=== PATIENT | female | born 1960 | race Two or more races ===

== ENCOUNTER 2018-01-25 13:48 | Emergency (ER) | payer OTHER ==
[2018-01-25] MEDS ORDERED: FAMOTIDINE 20 MG/50 ML IVPB 20 MG/50 ML MG IVPB ONE ×2 (14:13→14:21)
[2018-01-25] MEDS ORDERED: ONDANSETRON 4 MG/2 ML VIAL IVPUSH ONE (14:13)
[2018-01-25] MEDS ORDERED: MAG HYDROX/AL HYDROX/SIMETH 30 ML UNIT-DOSE CUP PO ONE (14:15)
[2018-01-25] MEDS ORDERED: SODIUM CHLORIDE 1,000 ML IV STA (14:20)
[2018-01-25] MEDS ORDERED: MAG HYDROX/AL HYDROX/SIMETH 30 ML UNIT-DOSE CUP ONE (14:21)
[2018-01-25] MEDS ORDERED: ONDANSETRON 4 MG/2 ML VIAL ONE (14:21)
--- NOTE | 2018-01-25 14:35 | PDOC ---
Attending Attestation - HPI HPI: 01/25/18 15:12 The patient is a 57 year old female with a significant PMH of tobacco use who presents to the emergency department with LUQ abdominal pain beginning approximately 3 days ago. She reports her LUQ pain is a stabbing sensation that radiates to her left flank with no aggravating or remitting factors. The patient was evaluated here yesterday for the same complaint and was discharged after normal labs, EKG, and CXR and improvement in pain with Pepcid and Maalox. Pt was prescribed Pepcid and Maalox, which she reports she did not take because she did not think it would help. Allergies: Sulfonamide antibiotics. - Physicial Exam PE: 01/25/18 15:12 GENERAL: Awake, alert, and fully oriented, in no acute distress HEAD: No signs of trauma EYES: PERRLA, EOMI, sclera anicteric, conjunctiva clear ENT: Auricles normal inspection, hearing grossly normal, nares patent, oropharynx clear without exudates. Moist mucosa NECK: Normal ROM, supple, no lymphadenopathy, JVD, or masses LUNGS: Breath sounds equal, clear to auscultation bilaterally. No wheezes, and no crackles HEART: Regular rate and rhythm, normal S1 and S2, no murmurs, rubs or gallops ABDOMEN: Soft, +LUQ ttp, normoactive bowel sounds. No guarding, no rebound. No masses. +L CVAT EXTREMITIES: Normal range of motion, no edema. No clubbing or cyanosis. No cords , erythema, or tenderness BACK: No midline spinal tenderness in cervical/thoracic/lumbar region NEUROLOGICAL: Normal speech, cranial nerves intact, negative pronator drift, 5/ 5 strength in all 4 extremities, normal sensation to light touch in all 4 extremities, normal cerebellar exam, normal gait, normal reflexes and tone SKIN: Warm, Dry, normal turgor, no rashes or lesions noted. <Bao Cid - Last Filed: 01/25/18 15:12> - Resident Resident Name: Ry Khan - ED Attending Attestation I have performed the following: I have examined & evaluated the patient, The case was reviewed & discussed with the resident, I agree w/resident's findings & plan, Exceptions are as noted - Medical Decision Making 01/25/18 14:34 57-year-old female presents emergency department for the second time in 2 days for left upper quadrant and left flank pain. Patient reported improvement with Pepcid yesterday however pain returned. Vitals unremarkable. Exam with left upper quadrant tenderness palpation and left CVA tenderness as well. Differential includes but is not limited to gastritis versus renal colic versus reflux versus musculoskeletal pain. We'll obtain lab work, urinalysis and CT scan, give pain control and reassess. 01/25/18 18:58 Labs, UA unremarkabe. Pain improved. CT done but pending read. 01/25/18 19:28 CT with no acute pathology. Patient reports significant improvement in pain. Repeat abd exam benign. Requests discharge home. Advised patient to follow up with her primary doctor and gastroenterology within one week. Pt agrees to plan. I discussed the physical exam findings, ancillary test results and final diagnoses with the patient. I answered all of the patient's questions. The patient was satisfied with the care received and felt comfortable with the discharge plan and treatment plan. The patient will call their primary care physician within 24 hours to arrange follow-up and will return to the Emergency Department with any new, persistent or worsening symptoms. <Amy Carrasco - Last Filed: 01/25/18 19:50> Discharge Disposition <Bao Cid - Last Filed: 01/25/18 15:12> - Discharge Dispostion Last Admission D/C Date: 02/05/02 Admit: No <Amy Carrasco - Last Filed: 01/25/18 19:50> - Diagnosis Abdominal pain - Discharge Dispostion Disposition: HOME Condition at time of disposition: Stable - Referrals Referrals: Eilceo Wiggins MD [Staff Physician] - - Patient Instructions Printed Discharge Instructions: DI for Abdominal Pain-Adult Additional Instructions: Call Dr. Wiggins's office for a follow-up appointment with her primary doctor within [address] Wiggins may refer you to a block hand for your abdominal pain. Return to the emergency department if you have any new, worsening or concerning symptoms.
--- NOTE | 2018-01-25 14:59 | PDOC ---
History of Present Illness - General Chief Complaint: Pain Stated Complaint: L SIDE STOMACH PAIN Time Seen by Provider: 01/25/18 14:04 History Source: Patient Exam Limitations: No Limitations - History of Present Illness Initial Comments: 01/25/18 14:48 Patient is a 57F with history of tobacco use here today complaining of LUQ abdominal and flank pain. Patient was seen in the ED by myself yesterday. Abdominal labs and UA were normal and patient's pain resolved with administration of pepcid, zofran and maalox. Patient was discharged with instructions to take maalox and pepcid for her pain. She reports that the pain came back this morning, but that she did not take any medications. She describes the pain as a stabbing pain that comes and goes in her left upper quadrant. Past History - Past Medical History Allergies/Adverse Reactions: Allergies Allergy/AdvReac Type Severity Reaction Status Date / Time Sulfa (Sulfonamide Allergy Verified 01/25/18 13:56 Antibiotics) Home Medications: Ambulatory Orders NK [No Known Home Medication] 01/24/18 COPD: No - Suicide/Smoking/Psychosocial Hx Smoking History: Never smoked Have you smoked in the past 12 months: No Information on smoking cessation initiated: No Hx Alcohol Use: No Drug/Substance Use Hx: No Substance Use Type: None Review of Systems - Review of Systems Comments:: 01/25/18 14:59 GENERAL/CONSTITUTIONAL: No fever or chills. HEAD, EYES, EARS, NOSE AND THROAT: No change in vision. No sore throat. CARDIOVASCULAR: No chest pain or shortness of breath RESPIRATORY: No cough, wheezing, or hemoptysis. GASTROINTESTINAL: Positive for nausea. Negative for vomiting, diarrhea or constipation. GENITOURINARY: No dysuria, frequency, or change in urination. MUSCULOSKELETAL: No joint or muscle swelling or pain. No neck or back pain. SKIN: No rash NEUROLOGIC: No headache, vertigo, loss of consciousness, or change in strength/ sensation. ENDOCRINE: No increased thirst. No abnormal weight change HEMATOLOGIC/LYMPHATIC: No anemia, easy bleeding, or history of blood clots. *Physical Exam - Vital Signs Last Vital Signs Temp Pulse Resp BP Pulse Ox 97.6 F 70 18 132/84 100 01/25/18 13:52 01/25/18 13:52 01/25/18 13:52 01/25/18 13:52 01/25/18 13:52 - Physical Exam Comments: 01/25/18 15:00 GENERAL: Awake, alert, and fully oriented, in no acute distress HEAD: No signs of trauma, normocephalic, atraumatic EYES: PERRLA, EOMI, sclera anicteric, conjunctiva clear ENT: Auricles normal inspection, hearing grossly normal, nares patent, oropharynx clear without exudates. Moist mucosa NECK: Normal ROM, supple, no lymphadenopathy, JVD, or masses LUNGS: No distress, speaks full sentences, clear to auscultation bilaterally HEART: Regular rate and rhythm, normal S1 and S2, no murmurs, rubs or gallops, peripheral pulses normal and equal bilaterally. ABDOMEN: Soft, minimally tender in LUQ, normoactive bowel sounds. No guarding, no rebound. No masses EXTREMITIES: Normal inspection, Normal range of motion, no edema. No clubbing or cyanosis. NEUROLOGICAL: Cranial nerves II through XII grossly intact. Normal speech, normal gait, no focal sensorimotor deficits SKIN: Warm, Dry, normal turgor, no rashes or lesions noted. ED Treatment Course - LABORATORY CBC & Chemistry Diagram: 01/25/18 13:30 01/25/18 13:30 - RADIOLOGY Radiology Studies Ordered: Category Date Time Status ABDOMEN & PELVIS CT WITH CONTR [CT] Stat CT Scan 01/25/18 14:16 Ordered - Medications Given in the ED: ED Medications Discontinued Medications Generic Name Dose Route Start Last Admin Trade Name Freq PRN Reason Stop Dose Admin Al Hydroxide/Mg Hydroxide 30 ml 01/25/18 14:15 01/25/18 14:40 Mylanta Oral Suspension - PO 01/25/18 14:16 30 ml ONCE ONE Administration Famotidine/Sodium Chloride 20 mg in 50 mls @ 100 mls/hr 01/25/18 14:13 14:41 Pepcid 20 Mg Premixed Ivpb - IVPB 01/25/18 14:42 100 mls/hr ONCE ONE Administration Ondansetron HCl 4 mg 01/25/18 14:13 01/25/18 14:41 Zofran Injection IVPUSH 01/25/18 14:14 Not Given ONCE ONE Medical Decision Making - Medical Decision Making 01/25/18 15:00 Patient is 57F with history of tobacco use here today complaining of LUQ/left flank pain. Vital signs stable and normal. Patient complaining of same pain as last night. Differential diagnosis includes, but is not limited to: gastritis, kidney stones, acs, pancreatitis. Do not believe patient has PE given lack of risk factors and what would be a very atypical presentation. EKG shows normal sinus rhythm with normal rate. Normal axis. T wave inversions in III and aVF, new compared to prior ekg from several months ago. III present in ekg done yesterday. aVF had poor baseline yesterday. No st elevations/ depressions. 01/25/18 16:46 Laboratory Tests 01/25/18 01/25/18 01/25/18 13:30 13:30 13:30 WBC 7.6 Hgb 12.6 Hct 37.3 Plt Count 239 Creat Clearance w eGFR > 60 Troponin I < 0.02 Urine Blood Urine Nitrite Ur Leukocyte Esterase 01/25/18 14:43 WBC Hgb Hct Plt Count Creat Clearance w eGFR Troponin I Urine Blood Negative Urine Nitrite Negative Ur Leukocyte Esterase Negative CBC normal. Lipase negative. Troponin undetectable. UA negative. Pending CT. *DC/Admit/Observation/Transfer Diagnosis at time of Disposition: Abdominal pain - Discharge Dispostion Disposition: HOME Condition at time of disposition: Stable - Referrals Referrals: Eliceo Wiggins MD [Staff Physician] - - Patient Instructions Printed Discharge Instructions: DI for Abdominal Pain-Adult Additional Instructions: Call Dr. Wiggins's office for a follow-up appointment with her primary doctor within [address] Wiggins may refer you to a deputy insurance commissioner for your abdominal pain. Return to the emergency department if you have any new, worsening or concerning symptoms. - Post Discharge Activity
[2018-01-25 15:09] LABS: URINE APPEARANCE CLEAR; URINE BILIRUBIN NEGATIVE (NEGATIVE); URINE BLOOD NEGATIVE (NEGATIVE); URINE COLOR LTYELLOW; URINE GLUCOSE (UA) NEGATIVE (NEGATIVE); URINE KETONE NEGATIVE (NEGATIVE); URINE LEUK ESTERASE NEGATIVE (NEGATIVE); URINE NITRITE NEGATIVE (NEGATIVE); URINE PROTEIN NEGATIVE (NEGATIVE)
[2018-01-25 15:32] LABS: ALBUMIN 3.5 g/dl (3.4-5.0); ANION GAP 6 (8-16); BILIRUBIN,TOTAL 0.4 mg/dL (0.2-1.0); BLOOD UREA NITROGEN 11 mg/dL (7-18); CALCIUM 8.5 mg/dL (8.5-10.1); CHLORIDE 108 mmol/L (98-107); CO2 27 mmol/L (21-32); CREATININE 0.7 mg/dL (0.55-1.02); GLUCOSE,RANDOM 83 mg/dL (74-106); LIPASE 171 U/L (73-393); POTASSIUM 4.4 mmol/L (3.5-5.1); SGOT/AST 18 U/L (15-37); SGPT/ALT 29 U/L (12-78); SODIUM 141 mmol/L (136-145); TOT PROT 6.5 g/dl (6.4-8.2)
[2018-01-25 15:33] LABS: ALK PHOS 83 U/L (45-117)
[2018-01-25 15:59] LABS: BASO % 0.6 % (0-2.0); EOS % 5.5 % (0-4.5); HEMATOCRIT 37.3 % (32.4-45.2); HEMOGLOBIN 12.6 GM/dL (10.7-15.3); LYMPH % 32.7 % (8-40); MCH 32.2 pg (25.7-33.7); MCHC 33.8 g/dl (32.0-36.0); MEAN CELL VOLUME 95.4 fl (80-96); MEAN PLT VOLUME 8.9 fl (7.5-11.1); MONO % 5.3 % (3.8-10.2); NEUT % 55.9 % (42.8-82.8); PLATELET COUNT 239 K/MM3 (134-434); RBC 3.91 M/mm3 (3.60-5.2); RDW 12.9 % (11.6-15.6); WHITE BLOOD COUNT 7.6 K/mm3 (4.0-10.0)
[2018-01-25 18:00] VITALS: BP 157/76; PULSE 69; TEMP 98.7
[2018-01-25 18:35] VITALS: BMI 25.2
--- NOTE | 2018-01-25 19:45 | EKG ---
Test Reason : Blood Pressure : / mmHG Vent. Rate : 061 BPM Atrial Rate : 061 BPM P-R Int : 138 ms QRS Dur : 074 ms QT Int : 414 ms P-R-T Axes : 003 -21 -28 degrees QTc Int : 416 ms NORMAL SINUS RHYTHM NONSPECIFIC T WAVE ABNORMALITY ABNORMAL ECG WHEN COMPARED WITH ECG OF 24-JAN-2018 16:25, T WAVE VARIATION Confirmed by KEEGAN FORD MD ([id number]) on 01/25/2018 7:45:45 PM Referred By: Confirmed By:KEEGAN FORD MD
== END 2018-01-25 17:30 | disposition home or self-care (01) ==
LOC: JER 13:48 → JERBED 17:16 → UNDOADMOB 17:16 → JER 17:30
PROC: 3E033GC Introduction of Other Therapeutic Substance into Peripheral Vein, Percutaneous Approach (ICD-10-PCS; principal; 2018-01-25)
DX: R10.84 Generalized abdominal pain (principal)
CPT/HCPCS: 36415; 74177-TC; 80053; 81003; 82550; 83690; 84484; 85025; 93005; 93010; 99285-25

== ENCOUNTER 2023-11-18 04:30 | Day surgery (SDC) | payer OTHER ==
[2023-11-14 11:35] VITALS: BMI 25.7
[2023-11-18 10:19] VITALS: TEMP 98.6
[2023-11-18 10:27] VITALS: RESP 16
[2023-11-18] MEDS ORDERED: PANTOPRAZOLE 40 MG TABLET PO ONE (10:34)
[2023-11-18 10:49] VITALS: BP 147/74; PULSE 80
== END 2023-11-18 10:57 | disposition home or self-care (01) ==
LOC: JASU-ENDO 04:30
PROVIDERS: ATTEND Internal Medicine Gastroenterology
PROC: 0DB78ZX Excision of Stomach, Pylorus, Via Natural or Artificial Opening Endoscopic, Diagnostic (ICD-10-PCS; 2023-11-18)
PROC: 0DB68ZX Excision of Stomach, Via Natural or Artificial Opening Endoscopic, Diagnostic (ICD-10-PCS; 2023-11-18)
PROC: 0DB98ZX Excision of Duodenum, Via Natural or Artificial Opening Endoscopic, Diagnostic (ICD-10-PCS; principal; 2023-11-18 09:30)
DX: K29.50 Unspecified chronic gastritis without bleeding (principal); B96.81 Helicobacter pylori [H. pylori] as the cause of diseases classified elsewhere; K29.80 Duodenitis without bleeding; K31.7 Polyp of stomach and duodenum
CPT/HCPCS: 88305-TC; 88341-TC; 88342-TC